=== PATIENT | female | born 1970 | race Hispanic/Latino ===

== ENCOUNTER 2018-11-02 08:48 | Day surgery (SDC) | payer BC ==
[2015-03-29 17:02] VITALS: BMI 32.5
[2018-11-02] MEDS ORDERED: Propofol 10 mg/ml Inj (20 ML) ONE (10:57)
[2018-11-02] MEDS ORDERED: Sodium Chloride 0.9% 1,000 ML IV SCH (12:45)
[2018-11-02 13:30] VITALS: RESP 16
[2018-11-02 13:44] VITALS: BP 122/82; TEMP 99.2; O2SAT 97
[2018-11-02 14:33] VITALS: PULSE 103
== END 2018-11-02 15:50 | disposition home or self-care (01) ==
LOC: ENDO 08:48
PROVIDERS: ATTEND Internal Medicine Gastroenterology
DX: Z12.11 Encounter for screening for malignant neoplasm of colon (principal); D12.8 Benign neoplasm of rectum; K64.0 First degree hemorrhoids; Z80.0 Family history of malignant neoplasm of digestive organs; K64.4 Residual hemorrhoidal skin tags
CPT/HCPCS: 45390; 84703; 88305; J2001; J2704; J7030; J7040